=== PATIENT | male | born 2000 | race Caucasian/White ===

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

== ENCOUNTER 2020-11-05 12:09 | Emergency (ER) | payer OTHER | END 2020-11-05 14:35 | disposition home or self-care (01) | LOC: ER1 12:09 | DX: U07.1 COVID-19 (principal); Z90.89 Acquired absence of other organs | CPT/HCPCS: 99283; U0002 ==

== ENCOUNTER 2021-02-11 20:17 | Emergency (ER) | payer OTHER ==
[2021-02-11 21:06] LABS: HEMOGLOBIN 14.4 gm/dl (14.0-17.5); RED BLOOD COUNT 4.49 M/UL (4.20-5.50); WHITE BLOOD COUNT 8.3 K/UL (4.5-11.0)
[2021-02-11 21:21] LABS: BUN/CREATININE RATIO 13 (0-10)
== END 2021-02-12 01:59 | disposition home or self-care (01) ==
LOC: ER1 20:17
PROVIDERS: Physician Assistant
DX: R10.31 Right lower quadrant pain (principal)
CPT/HCPCS: 80053; 81001; 83690; 85025; 87086; 96374; 96375; 99284; J1885; J2405; Q9967